=== PATIENT | male | born 1960 | race Caucasian/White ===

== ENCOUNTER → 2020-10-01 09:34 | Outpatient (CLI) | payer BC, SELFPAY ==
--- NOTE | 2020-10-01 09:41 | US_ITS ---
PROCEDURE: US ABDOMEN LIMITED CLINICAL INDICATION: RT SIDED ABD PAIN COMPARISON: US ABD US ABD(COMPLETE-MULTI ORGANS from 11/04/2015 FINDINGS: PANCREAS: Pancreas is not well delineated due to overlying bowel gas. CT or MRI without and with contrast with pancreatic protocol may provide further evaluation if clinically desired. LIVER: Diffuse increased echogenicity of the liver with poor through transmission of sound consistent with hepatic steatosis. No focal liver lesion demonstrated. There is appropriate direction of blood flow within non dilated portal vein. RIGHT KIDNEY: Unremarkable. Normal size and echogenicity. No hydronephrosis GALLBLADDER: No gallstones, gallbladder wall thickening, pericholecystic fluid, or biliary dilatation. IMPRESSION: Poor visualization of the tail the pancreas. Fatty liver. Otherwise negative. No gallstones apparent Dictated by: Ketan Tavares MD 10/01/2020 17:28 Ketan Tavares MD in [place] 10/01/2020 17:28
== END ==
PROVIDERS: PCP Family Medicine; Visit Provider Family Medicine
DX: R10.9 Unspecified abdominal pain (principal)
CPT/HCPCS: 76705

== ENCOUNTER → 2021-03-05 11:12 | Outpatient (CLI) | payer BC, SELFPAY | PROVIDERS: PCP Family Medicine; Visit Provider Nurse Practitioner | DX: Z20.822 Contact with and (suspected) exposure to COVID-19 (principal) | CPT/HCPCS: C9803; U0003; U0005 ==

== ENCOUNTER 2022-02-13 08:57 | Inpatient (IN) | payer BC, SELFPAY ==
[2022-02-13] VITALS (33 sets, daily range): BP systolic 75–182; BP diastolic 43–100; PULSE 58–87; RESP 16–22; TEMP 36.6–37.1; O2SAT 93–100; BMI 27.1; BMI 26.6
--- NOTE | 2022-02-13 | IR_ITS ---
APPROVED REPORT Patient Location: Emergent Frame Stripper: RENETTA Puente RT (R) PROCEDURES Right radial artery cannulation, Left heart cath with LV gram, Forced aspiration thrombectomy with penumbra device, Percutaneous coronary intervention to left anterior descending artery with 3.0x34 mm NANCY,post dialated upto 3.6 mm INDICATION Patient presented with anterior wall STEMI., Hypertension, dyslipidemia and diabetes, Ex smoker SCAI INDICATION Anterior wall STEMI Informed consent was obtained prior to the procedure. COMPLICATIONS None Estimated Blood Loss: Less than 10 mls TECHNIQUE One percent lidocaine used to anesthetize the right anterior aspect of the wrist. The right radial artery was accessed via the Seldinger technique. A 6 [place] sheath was placed in the right radial artery. 2.5 mg of verapamil, 800 mcg of nitroglycerin, 1mg Lidocaine and 5000 U Heparin were given through the arterial sheath. The RBU 3.5 guide catheter was advanced and left main artery was engaged. LAD artery was totally occluded from the proximal segment. I was able to advance BMW 0.014 coronary through LAD artery lesion. I used penumbra device for forced aspiration thrombectomy. Thrombectomy was performed successfully. I advanced a 3.0 x 34 mm drug-eluting stent and it was positioned in the proximal LAD artery lesion. It was deployed with nominal pressure. Stent was postdilated with 3.5x15 mm noncompliant balloon angioplasty. Angiographic views showed well-expanded stent, no dissection, no perforation and there was a SHWETA-3 flow in distal vessel. Multiple angiographic views were taken in different angles to assess left circumflex artery and LAD artery. Then I removed the EBU guide and advanced JR4 diagnostic catheter. Right coronary artery was engaged and multiple views were taken. JR4 catheter was removed and pigtail catheter was advanced. LV gram was performed as per standard technique. At the end of the procedure the sheath was removed good hemostasis was achieved using Traclet band, patient was transferred to the postop holding area in stable condition. ANGIOGRAPHIC RESULTS The left main artery Patent The left anterior descending artery 100 occluded proximally The circumflex artery Mild luminal irregularity of the OM1 branch. Rest of the vessel is patent. The right coronary artery Patent, large and dominant The AGUILLON ventriculogram reveals Mild anterior wall hypokinesia. EF 50 to 55% The left ventricular end-diastolic pressure 30 mmhg Electronically signed by : Shani Steward, 02/13/2022 11:28:27
--- NOTE | 2022-02-13 08:57 | ECG_ITS ---
APPROVED REPORT Exam: Resting ECG HR:75 bpm ECG Measurements Heart Rate 75 AXES AR 160 P 67 QRSd 90 QRS 3 QT 386 T -19 QTc 415 Conclusion SINUS RHYTHM ANTEROSEPTAL MYOCARDIAL INFARCTION , POSSIBLY ACUTE [40+ ms Q WAVE IN V1-V4] ACUTE IA UNCONFIRMED REPORT Electronically signed by : Mann Rodrigues MD 02/15/2022 20:13:22
--- NOTE | 2022-02-13 08:58 | PC.NURSE ---
STEMI alert activated and supervisor dimension warehouse called to notify labelling machine operator team
--- NOTE | 2022-02-13 09:00 | PC.NURSE ---
pt placed in a gown, wrist and groin shaved, cardiac pads in place
--- NOTE | 2022-02-13 09:05 | ED_ITS ---
Discharge Plan Disposition Patient Disposition: Admitted As Inpatient Condition: Good Referrals Follow up/Referrals: Provider,Referral, MD [Primary Care Provider] - See instructions Clinical Impressions Clinical Impression: ST elevation (STEMI) myocardial infarction Discharge ED Provider: Javi Schrader Chest Pain HPI General Stated Complaint: chest pain Time Seen by Provider: 02/13/22 09:05 Mode of Arrival: Ambulatory Source of Information: Patient Limitations: No Limitations Description of Symptoms (Recalled from ER Triage Doc. 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, h/o htn, chol MD complaint: chest pain indicative of cardiac Duration: constant and intermittent Pain location: left chest Severity: moderate Quality: aching Relieving factors: nothing Exacerbating factors: nothing Treatments prior to or on arrival for Cardiac Chest Pain: none Related Data Allergies Allergy/AdvReac Type Severity Reaction Status Date / Time No Known Allergies Allergy Unverified 06/07/17 14:32 ROS Obtained: Yes All systems reviewed & no additional complaints except as documented Physical Exam General General appearance: alert and in no apparent distress Head Head exam: atraumatic and normocephalic Eye Eye exam: Present normal appearance and PERRL ENT ENT exam: Present normal exam, normal oropharynx and mucous membranes moist Neck Neck exam: Present normal inspection, full ROM and trachea midline Chest Chest inspection: Present normal inspection and symmetric chest wall rise; Absent tenderness Respiratory Respiratory exam: Present normal lung sounds bilaterally; Absent respiratory distress or wheezes Cardiovascular Cardiovascular exam: Present regular rate and normal rhythm; Absent bradycardia or tachycardia Abdominal Exam Abdominal exam: Present soft; Absent distention, tenderness or guarding Extremities Exam Extremities exam: Present normal inspection and full ROM; Absent tenderness Back Exam Back exam: Present normal inspection and full ROM; Absent tenderness Neurological Exam Neurological exam: Present alert, oriented X3 and CN II-XII intact Psychiatric Psychiatric exam: Present normal affect and normal mood; Absent agitated Skin Skin exam: Present warm, intact and normal color Lymphatic Lymphatic Findings: no adenopathy Medical Decision Making Lonny Inquiry Pt receiving controlled substance: No Physician Consults Physician Consulted: dr arana Time: 09:08 Comment/Response: stemi advised, lab support tech called, dr aparicio on his way Medical Decision Narrative: ekg by me nsr, q waves, stemi lat precord leads
--- NOTE | 2022-02-13 09:09 | PC.NURSE ---
portable xr at the bedside
--- NOTE | 2022-02-13 09:09 | XR_ITS ---
PROCEDURE INFORMATION: Exam: XR Chest Exam date and time: 02/13/2022 9:16 AM Age: 61 years old Clinical indication: Pain; Radiating; Additional info: Chest pain TECHNIQUE: Imaging protocol: Radiologic exam of the chest. Views: 1 view. COMPARISON: No relevant prior studies available. FINDINGS: Lungs: No focal airspace disease. Pleural spaces: Unremarkable. No pleural effusion. No pneumothorax. Heart/Mediastinum: Cardiomediastinal silhouette is within normal limits. Bones/joints: Unremarkable. IMPRESSION: No acute cardiopulmonary abnormality.
[2022-02-13 09:13] LABS: Basophils # 0.1 K/mm3 (0-0.2); Basophils % 1.1 % (0.1-2.0); Eosinophils # 0.1 K/mm3 (0.0-0.4); Eosinophils % 1.6 % (0.1-12.0); Hematocrit 53.5 % (42.0-52.0); Hemoglobin 17.4 g/dL (14.1-18.0); Lymphocytes # 1.5 K/mm3 (0.7-4.5); Lymphocytes % 19.8 % (10-50); Mean Corpuscular HGB Conc 32.5 g/dL (31.8-35.4); Mean Corpuscular Hemoglobin 34.2 pg (27.0-31.2); Mean Corpuscular Volume 105.4 fl (80-94); Mean Platelet Volume 7.4 fl (7.4-10.4); Monocytes # 0.3 K/mm3 (0.1-1.0); Monocytes % 4.4 % (1.7-9.3); Neutrophils # 5.7 K/mm3 (1.8-7.8); Neutrophils % 73.2 % (37.0-80.0); Platelet Count 268 K/mm3 (142-424); Red Blood Count 5.07 M/mm3 (4.60-6.20); White Blood Count 7.7 K/mm3 (4.8-10.8)
--- NOTE | 2022-02-13 09:15 | PC.NURSE ---
stayed at pt's bedside waiting quality assurance lab technician.no ectopy noted on ekg. pt continues to c/o lt arm pain
[2022-02-13 09:18] LABS: Coronavirus 19, PCR Not Detected (NotDetected); Influenza A, PCR Not Detected (NotDetected); Influenza B, PCR Not Detected (NotDetected)
[2022-02-13 09:20] LABS: Anion Gap 15.7 mEq/L (5-15); Blood Urea Nitrogen 8 mg/dl (9-20); Calcium 9.5 mg/dl (8.4-10.2); Carbon Dioxide 21 mmol/L (22.0-30.0); Chloride 105 mmol/L (98-107); Creatinine Clearance Estimated 100 mL/min (50-200); Estimated Glomerular Filt Rate 137 ml/min (>60); GFR (African American) 166 ML/MIN (>60); Glucose 209 mg/dl (74-100); Potassium 3.7 mmoL/L (3.5-5.1); Sodium 138 mmol/L (136-145)
--- NOTE | 2022-02-13 09:20 | PC.NURSE ---
pt states daily alcohol drinker approx 0.5 pint everyday
[2022-02-13 09:26] LABS: Activated Partial Thrombo Time 24.6 seconds (22.8-30.6); Prothrombin Time 11.3 seconds (10.1-12.5)
[2022-02-13 09:32] LABS: Troponin I 0.03 ng/ml (0.00-0.034)
--- NOTE | 2022-02-13 09:34 | PC.NURSE ---
STEMI alert activated
--- NOTE | 2022-02-13 09:35 | PC.NURSE ---
pt transported to labview programmer at this time via stretcher
[2022-02-13 11:11] LABS: CATHL Activated Clotting Time 217 SEC (74-125)
--- NOTE | 2022-02-13 11:15 | PC.NURSE ---
Pt arrived to the floor at this time.
--- NOTE | 2022-02-13 11:39 | HMH.PHAINT1 ---
Pharmacy Intervention Comments: MEDICATION RECONCILIATION COMPLETE USING EXTERNAL PHARMACY FILL HISTORY.
--- NOTE | 2022-02-13 11:40 | P.CONPHA_ITS ---
[facility] Pharmacy VTE Monitoring Patient Demographics Admission date: 02/13/22 Report Date: 02/13/22 Time: 11:40 Patient Allergies No Known Allergies Allergy (Unverified 06/07/17 14:32) Height: 1.83 m Weight: 88.904 kg Current Active Problems (Updated 02/13/22 @ 10:18 by Sara Huff RN) ST elevation (STEMI) myocardial infarction (Acute) VTE Risk Labs: VTE Related Lab Results Hgb 17.4 g/dL (14.1-18.0) 02/13/22 09:00 Hct 53.5 % (42.0-52.0) H 02/13/22 09:00 Plt Count 268 K/mm3 (142-424) 02/13/22 09:00 PT 11.3 seconds (10.1-12.5) 02/13/22 09:00 INR 1.00 (0.9-1.1) 02/13/22 09:00 APTT 24.6 seconds (22.8-30.6) 02/13/22 09:00 BUN 8 mg/dl (9-20) L 02/13/22 09:00 Creatinine 0.60 mg/dl (0.66-1.25) L 02/13/22 09:00 Estimated Creat Clear 100 mL/min (50-200) 02/13/22 09:00 Was VTE Risk Assessment Performed: Yes VTE Score: 2 VTE Risk Level: Low Risk Clinical Trial Participant: No Prophylaxis VTE Prophylaxis Ordered?: Yes Types of VTE Prophylaxis: TEDS Knee High Location of Applied Device: Bilateral Lower Extremeties
--- NOTE | 2022-02-13 11:45 | HMH.PHAINT1 ---
Pharmacy Intervention Comments: MEDICATION RECONCILIATION COMPLETE USING EXTERNAL PHARMACY FILL HISTORY.
--- NOTE | 2022-02-13 14:18 | PC.NURSE ---
904-Notified by ER of stemi alert; lumber tying machine operator notified to page cardiac catheterization technician [phone]-Zuri, Fiona, and Zeenat all returned call; per ER MD Dr Quintanilla already aware 913-verified with ER staff that consent had been obtained, covid swab and labs collected 934-pt transported to cardiac catheterization technician via stretcher by Chrissie Redman RN and myself
--- NOTE | 2022-02-13 18:54 | PC.NURSE ---
Pt is A/Ox4. He has been on post op vitals all day. He has done well. He has eaten a cardiac diet and has tolerated it well. As I was taking the air out of the radial band he started to bleed a little placed 2mls back into band and restarted taking air at a little bit later. Has tolerated it well since off. He ambulated to the bath room just fine.
[2022-02-14] VITALS (7 sets, daily range): BP systolic 135–166; BP diastolic 82–101; PULSE 60–85; RESP 18; TEMP 36.8–37.2; O2SAT 95–97; BMI 26.0
--- NOTE | 2022-02-14 04:20 | PC.NURSE ---
No acute changes since previous assessment. Pt remains alert and oriented x4. Has rested well this shift. Lung sounds remain clear bilaterally and is tolerating room air well. Has been ambulating in room independently. No c/o n/v/d, no c/o chest pain, pressure or shortness of air. Pt did complain of back pain once this shift and was medicated per mar for pain. Radial cath site has 2x2 and tegaderm dressing that is clean, dry, and intact. No drainage or bleeding noted. BP has been elevated this shift SBP 135-165 DBP in the 90's. Other vital sighs are stable. Remains NSR on tele with occasional PVC's.
[2022-02-14 08:56] LABS: Basophils % 0.4 % (0.1-2.0); Eosinophils # 0.1 K/mm3 (0.0-0.4); Eosinophils % 1.2 % (0.1-12.0); Hematocrit 48.8 % (42.0-52.0); Hemoglobin 16.1 g/dL (14.1-18.0); Lymphocytes # 1.3 K/mm3 (0.7-4.5); Lymphocytes % 18.2 % (10-50); Mean Corpuscular HGB Conc 32.9 g/dL (31.8-35.4); Mean Corpuscular Volume 103.1 fl (80-94); Mean Platelet Volume 7.5 fl (7.4-10.4); Monocytes # 0.4 K/mm3 (0.1-1.0); Monocytes % 5.7 % (1.7-9.3); Neutrophils # 5.2 K/mm3 (1.8-7.8); Neutrophils % 74.5 % (37.0-80.0); Platelet Count 233 K/mm3 (142-424); Red Blood Count 4.74 M/mm3 (4.60-6.20); Red Cell Distribution Width 12.9 % (11.5-17.5)
--- NOTE | 2022-02-14 09:09 | PC.NURSE ---
courtesy tach juan: Pt sitting up in bed. No requests voiced at this time.
[2022-02-14 09:14] LABS: Alanine Aminotransferase 70 U/L (12-78); Albumin Level 3.7 g/dl (3.5-5.0); Albumin/Globulin Ratio 1.3 (1.1-1.8); Alkaline Phosphatase 62 U/L (38-126); Anion Gap 7.5 mEq/L (5-15); Aspartate Amino Transferase 252 U/L (17-59); Bilirubin,Total 1.5 mg/dl (0.2-1.3); Blood Urea Nitrogen 10 mg/dl (9-20); Calcium 8.9 mg/dl (8.4-10.2); Carbon Dioxide 25 mmol/L (22.0-30.0); Chloride 104 mmol/L (98-107); Creatinine Clearance Estimated 96 mL/min (50-200); Estimated Glomerular Filt Rate 137 ml/min (>60); GFR (African American) 166 ML/MIN (>60); Globulin 2.8 g/dL (1.3-3.2); Glucose 306 mg/dl (74-100); Potassium 3.5 mmoL/L (3.5-5.1); Sodium 133 mmol/L (136-145); Total Protein,Serum 6.5 g/dl (6.3-8.2)
--- NOTE | 2022-02-14 10:49 | EXP.HP ---
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 I was able to advance BMW 0.014 coronary through LAD artery lesion. I used penumbra device for forced aspiration thrombectomy.? Thrombectomy was performed successfully. I advanced a 3.0 x 34 mm drug-eluting stent and it was positioned in the proximal LAD artery lesion. It was deployed with nominal pressure. Stent was postdilated with 3.5x15 mm noncompliant balloon angioplasty. Angiographic views showed well-expanded stent, no dissection, no perforation and there was a SHWETA-3 flow in distal vessel. Multiple angiographic views were taken in different angles to assess left circumflex artery and LAD artery. Then I removed the EBU guide and advanced JR4 diagnostic catheter. Right coronary artery was engaged and multiple views were taken. JR4 catheter was removed and pigtail catheter was advanced. LV gram was performed as per standard technique. At the end of the procedure the sheath was removed good hemostasis was achieved using Traclet band, patient was transferred to the postop holding area in stable condition.? ANGIOGRAPHIC RESULTS The left main artery Patent The left anterior descending artery 100 occluded proximally The circumflex artery Mild luminal irregularity of the OM1 branch.? Rest of the vessel is patent. The right coronary artery Patent, large and dominant The AGUILLON ventriculogram reveals Mild anterior wall hypokinesia.? EF 50 to 55% The left ventricular end-diastolic pressure 30 mmhg Electronically signed by : Shani Steward,? 02/13/2022 11:28:27 pt was admitted to [facility] Medical History (Updated 02/13/22 @ 10:18 by Sara Huff, RN) Diabetes mellitus, type 2 History of gastroesophageal reflux (GERD) Hyperlipidemia Osteoarthritis Family History (Updated 02/13/22 @ 10:50 by Sara Huff, JOE) Family history of stroke Family history of hypertension Family history of myocardial infarction Family history of hyperlipidemia Social History Smoking Status: Current every day smoker alcohol intake: never current occupational status: employed household members: spouse housing: house lives independently: No marital status: Review of Systems Review of Systems Review of systems:: pertinent systems reviewed and negative unless documented below Constitutional Constitutional: Denies fever(s) Eyes Eyes: Denies diplopia ENT Ears, Nose, Mouth, and Throat: Denies dysphagia *Cardiovascular Cardiovascular: Reports as per HPI, Reports chest pain, Reports chest pain at rest and Reports dyspnea *Respiratory Respiratory: Reports dyspnea *Gastrointestinal Gastrointestinal: Denies dysphagia *Genitourinary Genitourinary: Denies hematuria *Musculoskeletal Musculoskeletal: Denies back pain Integumentary/Breasts Skin/Breast: Denies erythema *Neurologic Neurologic: Denies confusion Psychiatric Psychiatric: Denies confusion Meds Home Medications and Allergies Home Medications Medication Instructions Recorded Confirmed Type empagliflozin 25 mg tablet 25 mg PO DAILYDM Diabetes 02/13/22 02/13/22 History (Jardiance) lisinopril 10 mg tablet 10 mg PO DAILY High blood pressure 02/13/22 02/13/22 History meloxicam 7.5 mg tablet 7.5 mg PO DAILYP PRN ARTHRITIS 02/13/22 02/13/22 History New Prescriptions to Start Prescriptions: Allergies Allergy/AdvReac Type Severity Reaction S
--- NOTE | 2022-02-14 10:54 | PC.NURSE ---
Pt not using urinal for voids.
[2022-02-14 12:24] LABS: POC Glucose,Bedside 247 (70-110)
--- NOTE | 2022-02-14 15:56 | PC.NURSE ---
RN aware of elevated bp.
--- NOTE | 2022-02-14 19:04 | PC.NURSE ---
Pt is A/Ox4. He has tolerated his meals fine today. He is independent in the room. His has been by bed side all day.
[2022-02-15] VITALS: BP 143/85; PULSE 70; RESP 18; TEMP 37.1; O2SAT 96
[2022-02-15 03:43] LABS: POC Glucose,Bedside 230 (70-110)
[2022-02-15 04:00] VITALS: BP 122/78; PULSE 60; PULSE 69; RESP 17; TEMP 37; O2SAT 97
[2022-02-15 04:28] VITALS: BMI 25.4
--- NOTE | 2022-02-15 04:42 | PC.NURSE ---
pt has rested throughout the night. A&Ox4. ambulates to and from bathroom independently. no complaints of pain this shift. dressing to cath site C/D/I. NSR on tele. CB in reach.
[2022-02-15 05:50] LABS: POC Glucose,Bedside 143 (70-110)
[2022-02-15 05:58] LABS: POC Glucose,Bedside 186 (70-110)
--- NOTE | 2022-02-15 07:30 | CA_ITS ---
APPROVED REPORT EXAM: Comprehensive 2D, Doppler, and color-flow Echocardiogram Exceptional Student Education Teacher: Pinky Dillon RVT Ht: 6 ft 0 in Wt: 192lbs BSA: 2.09 BP: 149/81 mmHg Indications: STEMI,CAD,STENTS,CP,EX SMOKER,DM,HTN,HLD 2D Dimensions LVOT 2.25 cm (M/F) 1.5-2.5 LA Volume 39.10 mL LA Volume Index 18.70 mL/m2 (M/F) 16-34 M-Mode Dimensions RVDd 2.05 cm (0.9-2.6) LA Diam 3.77 cm (1.9-4.0) LVDd 2.94 cm (3.5-5.7) Ao Diam 3.73 cm (2.0-3.7) LVDs 1.45 cm (3.5-5.7) IVSd 1.97 cm (0.6-1.1) PWd 1.41 cm (0.6-1.1) EF (Teich) 83.50% FS 50.70% EDV (Teich) 33.30 mL TAPSE 2.26 (<1.7) ESV (Teich) 5.50 mL LV Diastology E Decel Time 177.00 (160-240 msec) E/A Ratio 0.7 MED E' 6.00 (< 7 cm/sec) E'/MED E' Ratio 7.77 (>14) LAT E' 10.20 (<10 cm/sec) E/LAT E' Ratio 4.57 (>14) Aortic Valve AO Peak GR. 5.30 mmHg Mitral Valve MV E Max Jesus. 47.00 (40-130 cm/s) MV A Velocity 67.00 (40-130 cm/s) E/A Ratio 0.69 MV Decel. Time 177.00 (160-240 ms) MV PHT 52.00 ms Pulmonary Valve PV Peak Velocity 107.00 (50-150 cm/s) Left Ventricle Left atrium is mildly enlarged, left ventricle is normal size, moderate concentric left ventricular hypertrophy, visually estimated ejection fraction 50%, there is mild hypokinesis involving the mid to distal septum and anterior apical wall. Grade 1 diastolic dysfunction seen without tissue Doppler evidence of raise left atrial pressure. Right Ventricle Right atrium and right ventricle are normal size and contractility. Aortic Valve Aortic valve is minimally thickened and fibrosed there is no aortic stenosis or aortic insufficiency. Mitral Valve Mitral valve is grossly normal, there is trace mitral regurgitation. Tricuspid Valve Tricuspid grossly normal, there is trace tricuspid regurgitation, tricuspid regurgitation jet velocity is inadequate for calculation of the right ventricular systolic pressure. Pulmonic Valve Pulmonic valve is poorly visualized. Great Vessels Aortic root is normal size. Inferior vena cava is normal size with normal inspiratory collapse. Pericardium No significant pericardial effusion noted. Conclusion 1. Mildly enlarged left atrium, normal left ventricular size, moderate concentric left ventricular hypertrophy, estimated ejection fraction 50% with segmental wall motion abnormality described above, grade 1 diastolic dysfunction seen without tissue Doppler evidence of raise left atrial pressure. 2. Trace mitral and tricuspid regurgitation. 3. No significant pericardial effusion noted. 4. Inferior vena cava normal size with normal inspiratory collapse. Electronically signed by : Mikey Cruz MD 02/15/2022 20:21:41
[2022-02-15 08:00] VITALS: BP 143/88; PULSE 73; RESP 18; TEMP 37; O2SAT 96
--- NOTE | 2022-02-15 09:35 | EXP.CARD.HP ---
History of Present Illness *Admission Date: 02/13/22 *Reason for visit:: chest paib *History of present illness: 61 year old white male with past medical hx of every day smoker, IDDM, GERD, HLD, and osteoarthritis presented to ED on 02/13/[address] elevation noted on initial EKG in leads V1-V6.patient was taken to quality lab assoc, report below. ANGIOGRAPHIC RESULTS The left main artery Patent The left anterior descending artery 100 occluded proximally The circumflex artery Mild luminal irregularity of the OM1 branch.? Rest of the vessel is patent. The right coronary artery Patent, large and dominant The AGUILLON ventriculogram reveals Mild anterior wall hypokinesia.? EF 50 to 55% The left ventricular end-diastolic pressure 30 mmhg Electronically signed by : Shani Steward,Jamey 02/13/2022 11:28:27 pt was admitted to floor Review of Systems Review of Systems Review of systems:: pertinent systems reviewed and negative unless documented below Constitutional Constitutional: Reports system reviewed and no additional complaints, except as documented *Cardiovascular Cardiovascular: Reports chest pain at rest *Respiratory Respiratory: Reports system reviewed and no additional complaints, except as documented *Gastrointestinal Gastrointestinal: Reports system reviewed and no additional complaints, except as documented *Neurologic Neurologic: Reports system reviewed and no additional complaints, except as documented and Denies confusion Psychiatric Psychiatric: Reports system reviewed and no additional complaints, except as documented and Denies confusion Meds Home Medications and Allergies Home Medications Medication Instructions Recorded Confirmed Type empagliflozin 25 mg tablet 25 mg PO DAILYDM Diabetes 02/13/22 02/13/22 History (Jardiance) lisinopril 10 mg tablet 10 mg PO DAILY High blood pressure 02/13/22 02/13/22 History meloxicam 7.5 mg tablet 7.5 mg PO DAILYP PRN ARTHRITIS 02/13/22 02/13/22 History New Prescriptions to Start Prescriptions: Allergies Allergy/AdvReac Type Severity Reaction Status Date / Time No Known Allergies Allergy Unverified 06/07/17 14:32 Exam Data for Last 24 hours Vital signs and Labs for Last 24 Hours: Temp Pulse Resp BP Pulse Ox 98.6 F 73 18 143/88 H 96 02/15/22 08:00 02/15/22 08:00 02/15/22 08:00 02/15/22 08:00 02/15/22 08:00 Laboratory Results - last 24 hr 08/28/22 12:05: POC Glucose 247 H 02/14/22 17:12: POC Glucose 186 H 02/14/22 19:48: POC Glucose 230 H 02/15/22 05:30: POC Glucose 143 H I & O for Last 24 hours: Intake & Output 02/12/22 02/13/22 02/14/22 02/15/22 23:59 23:59 23:59 23:59 Intake Total 480 / 480 1440 / 1440 Output Total 0 / 0 0 / 0 0 / 0 Balance 480 / 480 1440 / 1440 0 / 0 Weight 196 lb 192 lb 4 oz 188 lb 6 oz Constitutional Constitutional: no acute distress *Routine HEENT Exam Head: Present normocephalic Eye: Present EOMI ENT: Present mucous membranes moist *Routine Respiratory Exam Respiratory: Present CTA bilaterally and symmetric chest movement *Routine Cardiovascular Exam Cardiovascular: Present RRR, Normal S1 and Normal S2 *Routine Abdominal Exam Abdominal: Present soft and normoactive bowel sounds; Absent tenderness *Routine Rectal Exam Rectal:: deferred *Routine Genitalia Exam Genitalia:: deferred *Routine Extremities Exam Extremities: Present full ROM and normal capillary refill; Absent edema *Routine Skin Exam Skin: Present intact, dry and warm Detailed Neck Exam: Thyroids Thyroid: Absent bruit Results Labs and Meds Result diagrams: 02/14/22 08:45 02/14/22 08:45 Lab results: Intake and Output 02/14/22 02/15/22 02/15/22 23:59 07:59 15:59 Intake Total 240 / 1440 Output Total 0 / 0 Balance 240 / 1440 0 / 0 Intake: Intake, Oral Amount 240 / 1440 Output: Output, Urine Amount 0 / 0 Other: Number of Bowel Movements 1 Weight 188 lb 6 oz Patien
[2022-02-15 11:48] VITALS: BP 153/91; PULSE 65; RESP 18; TEMP 36.7; O2SAT 95
--- NOTE | 2022-02-15 12:43 | EXP.DC.SUM ---
General Admission date:: 02/13/22 Discharge date: 02/15/22 HPI HPI HPI: 61 year old white male with past medical hx of every day smoker, IDDM, GERD, HLD, and osteoarthritis presented to ED on 02/13/[address] elevation noted on initial EKG in leads V1-V6.patient was taken to [facility], report below. ANGIOGRAPHIC RESULTS The left main artery Patent The left anterior descending artery 100 occluded proximally The circumflex artery Mild luminal irregularity of the OM1 branch.? Rest of the vessel is patent. The right coronary artery Patent, large and dominant The AGUILLON ventriculogram reveals Mild anterior wall hypokinesia.? EF 50 to 55% The left ventricular end-diastolic pressure 30 mmhg Electronically signed by : Shani Steward,? 02/13/2022 11:28:27 pt was admitted to floor Hospital Course Hospital Course Hospital Course: pt has did well since cath with stable vital signs and diet and activity - pt was seen by card -Admission Date: 02/13/22 *Reason for visit:: chest paib *History of present illness: 61 year old white male with past medical hx of every day smoker, IDDM, GERD, HLD, and osteoarthritis presented to ED on 02/13/[address] elevation noted on initial EKG in leads V1-V6.patient was taken to [facility], report below. ANGIOGRAPHIC RESULTS The left main artery Patent The left anterior descending artery 100 occluded proximally The circumflex artery Mild luminal irregularity of the OM1 branch.? Rest of the vessel is patent. The right coronary artery Patent, large and dominant The AGUILLON ventriculogram reveals Mild anterior wall hypokinesia.? EF 50 to 55% The left ventricular end-diastolic pressure 30 [address]) ST elevation (STEMI) myocardial infarction: ?Status:?Acute ?Category:?Medical ?Code(s): I21.3 - ST elevation (STEMI) myocardial infarction of unspecified site (2) Diabetes mellitus, type 2: ?Status:?Acute ?Category:?Medical ?Code(s): E11.9 - Type 2 diabetes mellitus without complications (3) HTN (hypertension): ?Status:?Acute ?Category:?Medical ?Code(s): I10 - Essential (primary) hypertension Plan Stemi -s/p left heart cath. continue aspirin 81mg QD, brilinta 90mg BID, atorvastatin 80mg BID, and coreg 3.125mg BID. DM -Insulin and jardiance as per home meds HLD -Continue Lisinopril 10mg QD and coreg 3.125mg BID CV stable for dc home. please continue meds as listed above. follow u in office in 2 weeks. Assessment and plan all Dx Plan of Treatment: see recomendations- Exam Data for Last 24 hours Vital signs and Labs for Last 24 Hours: Temp Pulse Resp BP Pulse Ox 98.0 F 65 18 153/91 H 95 02/15/22 11:48 02/15/22 11:48 02/15/22 11:48 02/15/22 11:48 02/15/22 11:48 Laboratory Results - last 24 hr 02/14/22 17:12: POC Glucose 186 H 02/14/22 19:48: POC Glucose 230 H 02/15/22 05:30: POC Glucose 143 H I & O for Last 24 hours: Intake & Output 02/13/22 02/14/22 02/15/22 02/16/22 11:59 11:59 11:59 11:59 Intake Total 1200 / 1200 1200 / 1200 Output Total 0 / 0 0 / 0 Balance 1200 / 1200 1200 / 1200 Weight 196 lb 192 lb 4 oz 188 lb 6 oz Constitutional Constitutional: no acute distress and average body habitus *Routine HEENT Exam Head: Present normocephalic Eye: Present EOMI and PERRL ENT: Present mucous membranes moist *Routine Neck Exam Neck: Absent JVD *Routine Respiratory Exam Respiratory: Present CTA bilaterally *Routine Cardiovascular Exam Cardiovascular: Present RRR and murmur *Routine Abdominal Exam Abdominal: Present soft *Routine Rectal Exam Patient deferred: visual exam, digital exam and prostate exam *Routine Exam Patient deferred: penile exam, testicular exam, scrotal exam, groin exam and perineal exam *Routine Extremities Exam Extremities: Present full ROM *Routine Skin Exam Skin: Present intact *Routine Neurological Exam Neurological: Present alert, oriented X3 and CN II-XII intact Routine Psychiatric E
--- NOTE | 2022-02-15 13:19 | P.CONPHA_ITS ---
[facility] Environmental Protection Inspector Discharge Med Ophthalmology Surgical Technician: Brian Suarez has received discharge medication counseling on the following medications: ASPIRIN (NEW) BRILINTA (NEW) CARVEDILOL (NEW) LISINOPRIL ATORVASTATIN (NEW) ALL NEW PRESCRIPTIONS WERE SENT TO [facility]. SPOKE TO PATIENT AND PATIENT'S . BOTH VERBALIZED UNDERSTANDING AND HAD NO QUESTIONS AT THIS TIME. -AARON KITCHEN, PHARMD
== END 2022-02-15 13:35 | disposition home or self-care (01) | DRG 247 ==
LOC: ER 09:48 → CATHLAB 09:48 → 2ND 10:42
PROVIDERS: Admitting Provider Emergency Medicine; Emergency Provider Emergency Medicine; PCP Family Medicine; Referring Provider Internal Medicine Interventional Cardiology; Visit Provider Emergency Medicine
PROC: 027034Z Dilation of Coronary Artery, One Artery with Drug-eluting Intraluminal Device, Percutaneous Approach (ICD-10-PCS; principal; 2022-02-13 09:20)
DX: I21.09 ST elevation (STEMI) myocardial infarction involving other coronary artery of anterior wall (principal); E11.9 Type 2 diabetes mellitus without complications; I10 Essential (primary) hypertension; F17.210 Nicotine dependence, cigarettes, uncomplicated; Z82.49 Family history of ischemic heart disease and other diseases of the circulatory system; E78.5 Hyperlipidemia, unspecified; Z79.4 Long term (current) use of insulin; Z79.899 Other long term (current) drug therapy; M19.90 Unspecified osteoarthritis, unspecified site; I25.82 Chronic total occlusion of coronary artery
CPT/HCPCS: 36415; 71045; 80048; 80053; 82962; 84484; 85025; 85347; 85610; 85730; 92941; 93005; 93306; 93458; 99152; 99153; C1725; C1769; C1876; C9606; C9803; J1327; J1644; J2405; Q9967; U0003; U0005

== ENCOUNTER → 2022-09-29 10:52 | Outpatient (CLI) | payer BC, SELFPAY ==
[2022-09-29 11:54] LABS: Basophils % 0.6 % (0.1-2.0); Eosinophils # 0.1 K/mm3 (0.0-0.4); Eosinophils % 2.4 % (0.1-12.0); Hematocrit 52.8 % (42.0-52.0); Hemoglobin 16.8 g/dL (14.1-18.0); Lymphocytes # 1.4 K/mm3 (0.7-4.5); Lymphocytes % 25.1 % (10-50); Mean Corpuscular HGB Conc 31.9 g/dL (31.8-35.4); Mean Corpuscular Hemoglobin 33.5 pg (27.0-31.2); Mean Corpuscular Volume 105.2 fl (80-94); Mean Platelet Volume 7.8 fl (7.4-10.4); Monocytes # 0.4 K/mm3 (0.1-1.0); Monocytes % 6.8 % (1.7-9.3); Neutrophils # 3.6 K/mm3 (1.8-7.8); Neutrophils % 65.2 % (37.0-80.0); Platelet Count 195 K/mm3 (142-424); Red Blood Count 5.02 M/mm3 (4.60-6.20); Red Cell Distribution Width 13.7 % (11.5-17.5); White Blood Count 5.4 K/mm3 (4.8-10.8)
[2022-09-29 12:45] LABS: Alanine Aminotransferase 55 U/L (12-78); Albumin Level 4.6 g/dl (3.5-5.0); Alkaline Phosphatase 55 U/L (38-126); Anion Gap 8.5 mEq/L (5-15); Aspartate Amino Transferase 61 U/L (17-59); Bilirubin,Indirect 0.7 mg/dL (0.0-0.9); Bilirubin,Total 0.7 mg/dl (0.2-1.3); Bilirubin,Unconjugated 0.7 mg/dL (0.0-1.1); Blood Urea Nitrogen 17 mg/dl (9-20); Calcium 9.7 mg/dl (8.4-10.2); Carbon Dioxide 28 mmol/L (22.0-30.0); Chloride 106 mmol/L (98-107); Cholesterol 154 mg/dl (140-200); Estimated Glomerular Filt Rate 98 ml/min (>60); GFR (African American) 119 ML/MIN (>60); Glucose 134 mg/dl (74-100); Magnesium 1.8 mg/dl (1.6-2.3); Potassium 4.5 mmoL/L (3.5-5.1); Sodium 138 mmol/L (136-145); Total Protein,Serum 7.3 g/dl (6.3-8.2); Triglycerides 229 mg/dl (30-150); VLDL Cholesterol 46 mg/dL (0-40)
[2022-09-29 12:48] LABS: HDL Cholesterol 52 mg/dl (40-60)
[2022-09-29 12:56] LABS: Direct LDL Cholesterol 84.57 mg/dL (100-129)
[2022-09-29 13:02] LABS: Free T4 (Free Thyroxine) 0.84 ng/dl (0.78-2.19)
[2022-09-29 13:16] LABS: Thyroid Stimulating Hormone 1.09 uIU/mL (0.465-4.68)
== END ==
PROVIDERS: PCP Family Medicine; Visit Provider Nurse Practitioner
DX: I21.3 ST elevation (STEMI) myocardial infarction of unspecified site (principal); I25.118 Atherosclerotic heart disease of native coronary artery with other forms of angina pectoris; I10 Essential (primary) hypertension; E78.2 Mixed hyperlipidemia; K21.9 Gastro-esophageal reflux disease without esophagitis; Z95.5 Presence of coronary angioplasty implant and graft
CPT/HCPCS: 36415; 80048; 80061; 80076; 83735; 84439; 84443; 85025

== ENCOUNTER 2024-05-01 01:00 | Emergency (ER) | payer BC, SELFPAY ==
--- NOTE | 2024-05-01 01:02 | PC.NURSE ---
Assisted in getting this patient out of the vehicle and into a wheelchair, wheeled patient to registration.
--- NOTE | 2024-05-01 01:04 | ED_ITS ---
Discharge Plan Disposition Patient Disposition: Xfer Other Chief Complaint: Hyper/Hypoglycemia Prescriptions Prescriptions: No Action glipizide 5 mg tablet extended release 24hr 5 mg PO aspirin 81 mg tablet,delayed release (DR/EC) 81 mg PO DAILY Qty: 90 1RF loratadine 10 mg tablet 10 mg PO DAILY atorvastatin 80 mg tablet 80 mg PO HS Qty: 90 3RF carvedilol [Coreg] 3.125 mg tablet 3.125 mg PO BID Qty: 180 3RF Rx Instructions: must administer with a meal/food clopidogrel [Plavix] 75 mg tablet 75 mg PO DAILY Qty: 90 3RF Jardiance 25 mg tablet 25 mg PO DAILYDM Qty: 30 0RF pantoprazole [Protonix] 40 mg tablet,delayed release (DR/EC) 40 mg PO DAILY Qty: 90 3RF lisinopril 20 mg tablet 20 mg PO DAILY Qty: 90 3RF Referrals Follow up/Referrals: Conor Smith [Primary Care Provider] - See instructions Clinical Impressions Clinical Impression: Acute renal failure, Acute hypokalemia, Hypomagnesemia, Hypocalcemia, Diarrhea Instructions Patient Instructions: DI for Hyperglycemia -- Adult Print Language Print Language: Latvian Discharge ED Provider: Mundo Bravo General Adult HPI General Chief complaint: Hyper/Hypoglycemia Stated complaint: low bs, possible alcohol withdrawal Time Seen by Provider: 05/01/24 01:03 History of Present Illness HPI narrative: 63-year-old male with history of did-txgshqp-fhnxylkum diabetes, coronary artery disease status post stent last year, daily drinker, presents with hypoglycemia. EMS was called to the house yesterday for hypoglycemia but patient ultimately did not come. The family was monitoring his blood sugar and noted it to be in the 40s and so they brought him in. He has been having 10+ episodes of diarrhea a day for the last several days. He normally drinks about 1/5 of whiskey a day, reports that he started drinking heavily about a year ago after he retired. He denies ever having issues with withdrawal before. Reports he does not drink every day. Related Data Home Medications ?Medication ?Instructions ?Recorded ?Confirmed glipizide 5 mg tablet, extended 5 mg PO 03/25/22 03/29/24 release 24 hr loratadine 10 mg tablet 10 mg PO DAILY 03/29/24 03/29/24 Previous Rx's ?Medication ?Instructions ?Recorded aspirin 81 mg tablet,delayed 81 mg PO DAILY #90 tabs 02/23/22 release atorvastatin 80 mg tablet 80 mg PO HS #90 tabs 04/25/24 carvedilol 3.125 mg tablet (Coreg) 3.125 mg PO BID #180 tabs 04/25/24 clopidogrel 75 mg tablet (Plavix) 75 mg PO DAILY #90 tabs 04/25/24 empagliflozin 25 mg tablet 25 mg PO DAILYDM Diabetes #30 tabs 04/25/24 (Jardiance) lisinopril 20 mg tablet 20 mg PO DAILY High blood pressure 04/25/24 #90 tabs pantoprazole 40 mg tablet,delayed 40 mg PO DAILY #90 tabs 04/25/24 release (Protonix) Allergies Allergy/AdvReac Type Severity Reaction Status Date / Time No Known Allergies Allergy Verified 03/29/24 08:45 [facility] Disclaimer: The information contained in this section may have been updated after the patient was seen, as this information can be updated by other users. Medical History GERD (gastroesophageal reflux disease) Coronary artery disease Osteoarthritis History of gastroesophageal reflux (GERD) Diabetes mellitus, type [address] elevation (STEMI) myocardial infarction Surgical History History of coronary artery stent placement Family History Other Family history of hyperlipidemia Family history of hypertension Family history of myocardial infarction Family history of stroke Social History Smoking Status: Current every day smoker smoking status stop date: 02/13/22 alcohol intake: never current occupational status: employed Travel in the last 8 weeks: Inside the [place] household members: spouse housing: house lives independently: No marital status: Other Medical History Have you received the Flu Vaccine for this season: No Have you received the Pneumonia Vaccine: No ROS Obtained: Yes All systems reviewed & no additional complaints except as documented Physical Exam General General appearance: in no apparent distress Comment: Drowsy Head Head exam: atraumatic and normocephalic Eye Eye exam: Present normal appearance, PERRL, EOMI and scleral icterus ENT ENT exam: Present normal oropharynx and normal external ear exam Neck Neck exam: Present normal inspection and full ROM Chest Chest inspection: Present normal inspection and symmetric chest wall rise; Absent tenderness Respiratory Respiratory exam: Present normal lung sounds bilaterally; Absent respiratory distress Cardiovascular Cardiovascular exam: Present regular rate and normal rhythm Abdominal Exam Abdominal exam: Present soft and distention; Absent tenderness or guarding Extremities Exam Extremities exam: Present normal inspection; Absent edema or joint swelling Back Exam Back exam: Present normal inspection; Absent tenderness Neurological Exam Neurological exam: Present alert and oriented X3; Absent motor sensory deficit Psychiatric Psychiatric exam: Present normal affect and normal mood Skin Skin exam: Present warm, dry and normal color Lymphatic Lymphatic Findings: no adenopathy Medical Decision Making Medical Records Medical records reviewed: Yes I reviewed the patient's medical records. Screening: Per USPSTF and CDC recommendations, given the prevalence of disease in our region, it is our hospital?s policy to screen for HIV and viral Hepatitis for all patients aged 18 and over and those with ongoing risk factors. Lonny Inquiry Pt receiving controlled substance: No Lonny was queried for this patient: No Vital Signs: 05/01/24 01:20 05/01/24 01:26 Temperature 98.4 F Temperature Source Oral Pulse Rate 69 Pulse Rate [Apical] 71 Respiratory Rate 22 20 Blood Pressure 133/86 Blood Pressure [Right Arm] 139/80 Blood Pressure Mean [Right Arm] 99 Blood Pressure Source [Right Arm] Manual Cuff/ Auscultation Blood Pressure Position [Right Arm] Supine 02 Sat by Pulse Oximetry 94 L 97 Oxygen Delivery Method Room Air Room Air Lab Data Lab results reviewed: Yes I reviewed the patient's lab results. Lab Results 05/01/24 01:20: WBC 7.6, RBC 3.51 L, Hgb 11.7 L, Hct 32.8 L, MCV 93.5, MCH 33.4 H, MCHC 35.7 H, RDW 17.6 H, Plt Count 153, MPV 9.4, Neut % (Auto) 80.1 H, Lymph % (Auto) 10.7, Stewart % (Auto) 7.6, Eos % (Auto) 1.2, Baso % (Auto) 0.4, Neut # (Auto) 6.1, Lymph # (Auto) 0.8, Stewart # (Auto) 0.6, Eos # (Auto) 0.1, Baso # (Auto) 0.0, PT 12.4, INR 1.12 H, APTT 33.3 H, Sodium 134 L, Potassium 1.9 L*, C hloride 92 L, Carbon Dioxide 29, Anion Gap 14.9, BUN 57 H, Creatinine 10.60 H, Estimated Creat Clear 9, Estimated GFR 5 L*, Est GFR ( Amer) 6 L*, G lucose 32 L*, Calcium 7.4 L, Phosphorus 4.5, Magnesium 1.5 L, Total Bilirubin 3.1 H, AST 194 H, ALT 49, Alkaline Phosphatase 234 H, Total Protein 6.9, Albumin 3.2 L, Globulin 3.7 H, Albumin/Globulin Ratio 0.9 L, Plasma/Serum Alcohol < 10 05/01/24 01:20 05/01/24 01:20 Orders (Tests/Meds): ED MEDICATIONS Generic Name Dose Route Start Last Admin Trade Name Freq PRN Reason Stop Dose Admin Folic Acid 1 mg 05/01/24 09:00 Folic Acid 1mg Tablet PO 05/31/24 08:59 DAILY BERE Magnesium Sulfate 2 gm in 50 mls @ 50 mls/hr 05/01/24 02:25 Magnesium Sulfate 2gm/50ml Premix IV 05/01/24 03:24 ONCE ONE Potassium Chloride/Water 100 mls @ 100 mls/hr 05/01/24 02:30 Potassium Chloride 10meq/100ml Ivpb IV 05/01/24 05:29 Q1H BERE Calcium Gluconate/Sodium Chloride 1 gm in 50 mls @ 50 mls/hr 05/01/24 02:26 Calcium Gluconate 1,000mg/50ml Nacl Premix IV 05/01/24 03:25 ONCE ONE Sodium Chloride 1,000 mls @ 999 mls/hr 05/01/24 02:30 Sod Chlor 0.9% 1000ml Bag IV 05/01/24 03:30 .Q1H1M BERE Multivitamins 1 each 05/01/24 17:00 Multivitamin Tablet PO 05/31/24 16:59 1700 BERE Thiamine HCl 100 mg 05/01/24 09:00 Thiamine 100mg Tablet PO 05/03/24 09:01 DAILY BERE Discontinued Medications Generic Name Dose Route Start Last Admin Trade Name Freq PRN Reason Stop Dose Admin Sodium Chloride 1,000 mls @ 999 mls/hr 05/01/24 01:30 05/01/24 02:13 Sod Chlor 0.9% 1000ml Bag IV 05/01/24 02:30 999 mls/hr .Q1H1M BERE Administration Potassium Chloride 40 meq 05/01/24 02:25 Potassium Chloride 20meq Tab PO 05/01/24 02:26 ONCE ONE ORDERS Category Date Time Status Activated Partial Thrombo Time Routine Lab 05/01/24 01:20 Completed Complete Blood Count Auto Diff Routine Lab 05/01/24 01:20 Completed Comprehensive Metabolic Panel Routine Lab 05/01/24 01:20 Completed Ethyl Alcohol Stat Lab 05/01/24 01:20 Completed Magnesium Routine Lab 05/01/24 01:20 Completed Phosphorous Routine Lab 05/01/24 01:20 Completed Prothrombin Time INR Routine Lab 05/01/24 01:20 Completed Medical Decision Narrative: 63-year-old male, history of kos-ioslbug-rrqiixatz diabetes, coronary artery disease, alcohol use disorder presents with recurrent hypoglycemia from home, has been having numerous episodes of diarrhea a day.. History was obtained via interactive discussion with patient, family, chart review. On arrival, patient is afebrile, hemodynamically stable, drowsy but arousable with blood sugar too low to detect on fingerstick. Patient was able to drink juice without difficulty. He got 2 apple juices and an orange juice with improvement in his blood sugar to 76. His CIWA is 2, does not appear to be in active withdrawal. Differential includes but is not limited to dehydration, renal failure, medication error, intoxication, withdrawal, cirrhosis, hepatorenal syndrome, electrolyte derangement Patient was given 2 L normal saline, 2 g IV mag, 1 g IV calcium gluconate, 40 mg p.o. potassium, 30 mg IV potassium, folic acid, thiamine, multivitamin for symptomatic management and correction of underlying abnormalities. Workup initiated including CBC CMP mag Phos. On re-evaluation, patient [remains afebrile, HD stable.] Laboratory workup independently interpreted by me and significant for markedly elevated creatinine, creatinine 10.6 with baseline 08. BUN similarly elevated. LFTs abnormal with AST greater than ALT, bilirubin 3.1. Electrolyte derangements including hypokalemia, hypomagnesemia, hypocalcemia. Alcohol negative. Given patient history, exam and workup, patient's presentation most likely represents severe dehydration, recurrent hypoglycemia and acute renal failure secondary to diarrheal illness and alcohol use disorder. Given the severity of the patient's kidney injury, he is not stable for our facility as he may require emergent dialysis. Given this, we called and spoke with several hospitals regarding transfer. He was ultimately accepted to [facility] and Dr. Bliss for further evaluation and management. Procedures Risk/Benefits of Procedure(s) Were Explained: Yes Critical Care Critical Care Time Critical Care Time: Yes Attestation: On 05/01/24, the high probability of a clinically significant, sudden or life threatening deterioration of the following system(s) required my full and direct attention, intervention and personal management. The time I documented below is in addition to time spent performing reported procedures but includes the following listed in this critical care notation. Total Time Total Critical Care Time: 45
[2024-05-01 01:20] VITALS: BP 139/80; PULSE 71; RESP 22; TEMP 36.9; O2SAT 94; BMI 26.2
[2024-05-01 01:26] VITALS: BP 133/86; PULSE 69; RESP 20; O2SAT 97
[2024-05-01 01:49] LABS: Albumin Level 3.2 g/dl (3.5-5.0); Chloride 92 mmol/L (98-107); Sodium 134 mmol/L (136-145)
[2024-05-01 01:51] LABS: Alanine Aminotransferase 49 U/L (12-78); Anion Gap 14.9 mEq/L (5-15); Aspartate Amino Transferase 194 U/L (17-59); Blood Urea Nitrogen 57 mg/dl (9-20); Carbon Dioxide 29 mmol/L (22.0-30.0); Creatinine Clearance Estimated 9 mL/min (50-200); Estimated Glomerular Filt Rate 5 ml/min (>60); GFR (African American) 6 ML/MIN (>60)
[2024-05-01 01:52] LABS: Albumin/Globulin Ratio 0.9 (1.1-1.8); Alkaline Phosphatase 234 U/L (38-126); Basophils % 0.4 % (0.1-2.0); Bilirubin,Total 3.1 mg/dl (0.2-1.3); Calcium 7.4 mg/dl (8.4-10.2); Eosinophils # 0.1 K/mm3 (0.0-0.4); Eosinophils % 1.2 % (0.1-12.0); Globulin 3.7 g/dL (1.3-3.2); Hematocrit 32.8 % (42.0-52.0); Hemoglobin 11.7 g/dL (14.1-18.0); Lymphocytes # 0.8 K/mm3 (0.7-4.5); Lymphocytes % 10.7 % (10-50); Magnesium 1.5 mg/dl (1.6-2.3); Mean Corpuscular HGB Conc 35.7 g/dL (31.8-35.4); Mean Corpuscular Hemoglobin 33.4 pg (27.0-31.2); Mean Corpuscular Volume 93.5 fl (80-94); Mean Platelet Volume 9.4 fl (7.4-10.4); Monocytes # 0.6 K/mm3 (0.1-1.0); Monocytes % 7.6 % (1.7-9.3); Neutrophils # 6.1 K/mm3 (1.8-7.8); Neutrophils % 80.1 % (37.0-80.0); Phosphorous 4.5 mg/dl (2.5-4.5); Platelet Count 153 K/mm3 (142-424); Red Blood Count 3.51 M/mm3 (4.60-6.20); Red Cell Distribution Width 17.6 % (11.5-17.5); Total Protein,Serum 6.9 g/dl (6.3-8.2); White Blood Count 7.6 K/mm3 (4.8-10.8)
[2024-05-01 01:55] LABS: Activated Partial Thrombo Time 33.3 seconds (22.8-30.6); INR 1.12 (0.9-1.1); Prothrombin Time 12.4 seconds (10.1-12.5)
[2024-05-01 02:01] LABS: Glucose 32 mg/dl (74-100); Potassium 1.9 mmoL/L (3.5-5.1)
--- NOTE | 2024-05-01 02:09 | PC.NURSE ---
Called [facility] for possible transfer, they will have their provider call back as soon as they are available.
[2024-05-01 02:11] LABS: Ethyl Alcohol < 10 mg/dl (0-10)
[2024-05-01] MEDS: 0.9 % SODIUM CHLORIDE 1000ML 1,000 ML 999 ML IV ×2 (02:13→03:16)
--- NOTE | 2024-05-01 02:31 | PC.NURSE ---
states they are on diversion and can't accept pt. Called [facility], placed pt on wait-list. State hospitalist will call us back.
--- NOTE | 2024-05-01 02:32 | PC.NURSE ---
Calling [facility] for possible transfer to [facility]
[2024-05-01] MEDS: KCl 10mEq/100ml 100 ML 100 MEQ IV (03:00)
[2024-05-01] MEDS: FOLIC ACID 1MG TABLET 1 MG PO (03:14)
[2024-05-01] MEDS: MAGNESIUM SULFATE IN WATER 2 GM/50 ML PIGGYBACK IV (03:17)
[2024-05-01] MEDS: CALCIUM GLUC IN NACL, ISO-OSM 1 GM/50 ML BAG IV (03:19)
[2024-05-01] MEDS: POTASSIUM CHLORIDE 20MEQ TAB 40 MEQ PO (03:37)
[2024-05-01] MEDS: MVI, ADULT NO.1 WITH VIT K 10 ML, THIAMINE HCL 100 MG, MAGNESIUM SULFATE 2 GM in LACTAT... 150 ML IV (03:42)
[2024-05-01 04:09] LABS: Glucose,Random 31 mg/dL (74-100)
[2024-05-01] MEDS: DEXTROSE 10 % IN WATER 500 ML 100 ML IV (04:16)
[2024-05-01 04:32] VITALS: BP 139/85; PULSE 77; RESP 20; TEMP 36.8; O2SAT 96
== END 2024-05-01 04:37 | disposition other institution (70) ==
PROVIDERS: Emergency Provider Emergency Medicine; PCP Family Medicine
DX: N17.9 Acute kidney failure, unspecified (principal); E87.6 Hypokalemia; E83.42 Hypomagnesemia; E83.51 Hypocalcemia; R19.7 Diarrhea, unspecified
CPT/HCPCS: 80053; 80320; 82947; 83735; 84100; 85025; 85610; 85730; 96361; 96365; 96366; 96367; 99291; G0480; J3411; J3475; J3480; J7030; J7120